=== PATIENT | female | born 1950 | race Caucasian/White ===

== ENCOUNTER 2018-08-21 09:37 | Emergency (ER) | payer MEDICARE ==
--- NOTE | 2018-08-21 10:20 | EDM.PDOC ---
ED HPI GENERAL MEDICAL PROBLEM - General Chief Complaint: Eye Problems Stated Complaint: PINK EYE Time Seen by Provider: 08/21/18 10:10 Source of Information: Reports: Patient, Family, RN Notes Reviewed History Limitations: Reports: No Limitations - History of Present Illness INITIAL COMMENTS - FREE TEXT/NARRATIVE: 67-year-old female presents emergency department today with complaint of red left eye she states this is developed over the last 24 hours she was exposed to pinkeye with her granddaughter however she is not having any symptoms at this eye is just injected when she woke up this morning - Related Data Allergies Allergy/AdvReac Type Severity Reaction Status Date / Time adhesive tape Allergy Hives Verified 08/21/18 10:06 Home Meds: Home Meds FLUoxetine [PROzac] 40 mg PO DAILY 08/21/18 [History] 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: Dermatologic 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: Reports: Melanoma - Infectious Disease History Infectious Disease History: Reports: Chicken Pox - Past Surgical History GI Surgical History: Reports: Cholecystectomy Musculoskeletal Surgical History: Reports: Other (See Below) Other Musculoskeletal Surgeries/Procedures:: screws in bilateral great toes Social & Family History - Tobacco Use Smoking Status *Q: Current Some Day Smoker Years of Tobacco use: 50 Packs/Tins Daily: 1 - Caffeine Use Caffeine Use: Reports: Coffee ED ROS GENERAL - Review of Systems Review Of Systems: See Below Constitutional: Reports: No Symptoms HEENT: Denies: Eye Discharge, Eye Pain ED EXAM GENERAL W FULL EYE - Physical Exam Exam: See Below Text/Narrative:: Examination eyes pupils equal round reactive to light and accommodation extraocular eye movements intact examination of the left eye the conjunctiva are not in injected however the sclera is injected on the medial aspect Exam Limited By: No Limitations General Appearance: Alert, WD/WN, No Apparent Distress Course - Vital Signs Last Recorded V/S: Last Vital Signs Temp 97.3 F 08/21/18 10:07 Pulse 85 08/21/18 10:07 Resp 18 08/21/18 10:07 BP 150/83 H 08/21/18 10:07 Pulse Ox 94 L 08/21/18 10:07 Departure - Departure Time of Disposition: 10:19 Disposition: Home, Self-Care 01 Condition: Fair Clinical Impression: Injected eye, left - Discharge Information Referrals: Miki Duncan NP [Primary Care Provider] - Additional Instructions: If this eye does not clear in the next 24 hours recommend starting antibiotics of gentamicin, follow-up with your care provider the next 2-3 days if no improvement - Assessment/Plan Plan: Assessment Acuity = acute Site and laterality = left eye injection Etiology = unclear etiology Manifestations = none Location of injury = Home Lab values = none Plan Recommend symptomatic care however I did provide her a hard copy prescription gentamicin ophthalmic if this does not improve over the next 24 hours follow-up primary I care provider in the next 2-3 days if no improvement This note was dictated using [employer] voice recognition software please call with any questions on syntax or grammar.
== END 2018-08-21 10:33 | disposition home or self-care (01) ==
LOC: JP.ED 09:37
DX: H57.89 Other specified disorders of eye and adnexa (principal); F17.210 Nicotine dependence, cigarettes, uncomplicated; Z79.899 Other long term (current) drug therapy; Z91.09 Other allergy status, other than to drugs and biological substances
CPT/HCPCS: 99282